=== PATIENT | female | born 1960 | race Caucasian/White ===

== ENCOUNTER 2017-10-08 11:01 | Emergency (ER) | payer SELFPAY ==
[~2017-10-08 11:01] MED LIST: diphenhydrAMINE 50 MG/ML VIAL ONE
[2017-10-08] MEDS ORDERED: Nitroglycerin 0.4 MG TAB 1 EACH ONE (12:22)
== END 2017-10-08 13:48 | disposition short-term general hospital (02) ==
LOC: MADERS 11:01
DX: M54.6 Pain in thoracic spine (principal); R21 Rash and other nonspecific skin eruption; I10 Essential (primary) hypertension; E78.00 Pure hypercholesterolemia, unspecified; F17.210 Nicotine dependence, cigarettes, uncomplicated; Z79.899 Other long term (current) drug therapy
CPT/HCPCS: 93005; 96374; J1200

== ENCOUNTER 2017-11-12 18:57 | Emergency (ER) | payer SELFPAY ==
[2017-11-12] MEDS ORDERED: cefTRIAXone\\ROCEPHIN 1 GM VIAL ONE (19:44)
[2017-11-12] MEDS ORDERED: Oseltamivir 75 MG CAP ONE (19:44)
[2017-11-12] MEDS ORDERED: Acetaminophen 500 MG TAB ONE (19:44)
[2017-11-12 19:46] LABS: #Basophils 0.1 thou/uL (0.0-0.2); #Eosinphils 0.1 thou/uL (0.0-0.7); #Lymphocytes 3.7 thou/uL (1.20-3.40); #Neutrophils 11.4 thou/uL (1.40-6.50); %Basophils 0.3 % (0.0-1.0); %Eosinophils 0.4 % (0.0-10.0); %Lymphocytes 22.8 % (21.0-51.0); %Monocytes 6.2 % (0.0-10.0); %Neutrophils 70.3 % (42.0-75.0); Hemoglobin 12.3 g/dL (12.0-16.0); Mean Corpuscular HGB CONC 32.7 g/dL (32.0-36.0); Mean Corpuscular Hemoglobin 29.7 pg (27.0-31.0); Mean Corpuscular Volume 90.9 fl (81.0-99.0); Mean Platelet Volume 6.8 fL (7.4-10.4); Platelet Count 362 thou/uL (130-400); RBC Distribution Width 12.3 % (11.5-14.5); Red Blood Cell (RBC) Count 4.15 mill/uL (4.20-5.40); White Blood Cell (WBC) Count 16.2 thou/uL (4.8-10.8)
[2017-11-12 20:02] LABS: Anion Gap 20 mmol/L (10-20); BUN (Urea Nitrogen) 16 mg/dL (9.8-20.1); Calc. Creatinine Clearance 0 mL/min (70-130); Calcium 9.2 mg/dL (7.8-10.44); Carbon Dioxide 24 mmol/L (22-29); Chloride 102 mmol/L (98-107); Estimated GFR-MDRD 90; Glucose 98 mg/dL (70-105); Potassium 3.1 mmol/L (3.5-5.1); Sodium 143 mmol/L (136-145)
[2017-11-12 20:09] LABS: CKMB 1.9 ng/mL (0-6.6); Troponin I Less than 0.010 ng/mL (< 0.028)
--- NOTE | 2017-11-12 21:11 | RAD ---
PORTABLE CHEST ONE VIEW 11/12/17 at 7:24 p.m. HISTORY: Dyspnea. FINDINGS/IMPRESSION: Comparison made with exam of 10/08/17. The heart size is normal. The aorta is tortuous. The lungs are well expanded without focal areas of c onsolidation, pneumothorax, sherron pulmonary edema or pleural effusions. Mild pulmonary vascular conge stion is noted. POS: [facility]
[2017-11-12] MEDS ORDERED: Benzonatate 100 MG CAP ONE (21:30)
[2017-11-12] MEDS ORDERED: AMOXicillin 250 MG CAP ONE (21:30)
== END 2017-11-12 21:40 | disposition home or self-care (01) ==
LOC: MADERS 18:57
DX: J20.9 Acute bronchitis, unspecified (principal); I10 Essential (primary) hypertension; F17.210 Nicotine dependence, cigarettes, uncomplicated; E78.00 Pure hypercholesterolemia, unspecified
CPT/HCPCS: 71045; 80048; 82553; 83880; 84484; 85025; 93005; 94640; 96374; J0696; J7620

== ENCOUNTER 2017-12-27 18:04 | Emergency (ER) | payer SELFPAY ==
[2017-12-27] MEDS ORDERED: Bacitracin Zinc 1 Packet ONE (18:45)
== END 2017-12-27 19:06 | disposition home or self-care (01) ==
LOC: MADERS 18:04
DX: L08.89 Other specified local infections of the skin and subcutaneous tissue (principal); I10 Essential (primary) hypertension; E78.00 Pure hypercholesterolemia, unspecified; F17.210 Nicotine dependence, cigarettes, uncomplicated
CPT/HCPCS: 99282